=== PATIENT | male | born 2000 | race Caucasian/White ===

== ENCOUNTER 2023-02-02 16:29 | Emergency (ER) | payer BC ==
[2023-02-02] MEDS ORDERED: Sodium Chloride 0.9% 10 ML Syringe FLUSH PRN (18:12)
[2023-02-02] MEDS: fentaNYL 50 MCG/ML SDV IVPUSH ONE (18:17)
[2023-02-02] MEDS: Take Home: Acetaminophen/HYDROcodone 325-5 MG, 2 Tab Pack PO ONE (18:58)
== END 2023-02-02 19:17 | disposition home or self-care (01) ==
LOC: CC.ED 16:29
DX: S82.201A Unspecified fracture of shaft of right tibia, initial encounter for closed fracture (principal); S82.401A Unspecified fracture of shaft of right fibula, initial encounter for closed fracture; Z88.1 Allergy status to other antibiotic agents; X50.0XXA Overexertion from strenuous movement or load, initial encounter
CPT/HCPCS: 27752; 73610-RT; 73700-RT; 99284; 99284-25; A9270-GY; J3010